=== PATIENT | female | born 1970 | race African-American/Black ===

== ENCOUNTER → 2020-02-21 08:29 | Outpatient (CLI) | payer OTHER, SELFPAY ==
--- NOTE | 2020-02-21 08:32 | CT_ITS ---
STUDY: CT ABDOMEN WITH AND WITHOUT CONTRAST REASON FOR EXAM: Female, 49 years old. Adrenal adenoma follow up, recheck size. Prior hernia repair. RADIATION DOSAGE (If Supplied By Facility): CTDIvol = ( 24.18 ) mGy, DLP = ( 1949.92 ) mGycm TECHNIQUE: Transaxial images were obtained pre and post I.V. administration of IV 100mL Isovue-300, and without oral contrast. Sagittal and coronal images were reconstructed. Individualized dose optimization techniques were used for this CT. COMPARISON: Comparison is made with prior study dated 04/21/2017. FINDINGS: Minimal increased linear markings at the lung bases suggestive of dependent bibasilar atelectasis. The visualized portions of the heart are within normal limits. Stable 2.4 cm x 1.8 cm well-defined rounded enhancing nodule in the superior aspect of the right lobe of the liver. This most likely represents a small hemangioma. Normal gallbladder and extrahepatic biliary system. Normal spleen. Normal pancreas. There is a small, circumscribed, smooth, low attenuation left adrenal mass, consistent with an adrenal adenoma. This measures 1.3 cm. Normal right adrenal gland. Normal right kidney. Normal left kidney. Normal visualized stomach. Normal small intestine. Normal colon. The appendix is visualized and appears normal. Normal abdominal aorta. Normal inferior vena cava. Normal retroperitoneum. Enlarged fibroid uterus with thick calcification along its right side. Normal abdominal wall. There are mild degenerative changes of the visualized lumbar spine. CT/Abdomen W/WO IV Contrast IMPRESSION: Stable examination. Electronically Signed: Mike Foss, at 10:26 EDT , Service support ,
== END ==
PROVIDERS: PCP Nurse Practitioner; Referring Provider Nurse Practitioner; Visit Provider Nurse Practitioner
DX: D35.02 Benign neoplasm of left adrenal gland (principal)
CPT/HCPCS: 74170; Q9967; A4216